=== PATIENT | female | born 2005 | race African-American/Black ===

== ENCOUNTER 2023-08-26 23:49 | Emergency (ER) | payer BC ==
--- OUTSIDE RECORDS SUMMARY | 2023-08-26 23:52 | XMS REPORT | Continuity of Care Document ---
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 Role Phone Lab, Adc Fam Pob I Attending Clinician Unavailab iGl Meneses PA-C Attending Clinician [phone] Lab, Pcp Lois Attending Clinician Unavailable Geovanni Malhotra Attending Clinician [phone] GEOVANNI FITZGERALD Attending Clinician Unavailable Payers Payer Name Policy Type Policy Number Effective Date Expirati on Date Source [facility] [id number] 2018 00:00:00 Allergies, Adverse Reactions, Alerts Allergy Name Allergy Type Status Severity Reaction(s) Onset Date Inactive Date Treating Clinician Comments Source NO KNOWN ALLERGIE S Drug Class Active [facility] Social History Social Habit Start Date Stop Date Quantity Comments Source Sex Assigned At [facility] Exposure to SARS-CoV-2 (event) Yes [facility] Smoking Status Start Date Stop Date Source Unknown if ever smoked Unive [facility] Encounters Start Date/Time End Date/Time Encounter Type Admission Type Attending Clinicians Care Facility Care Department Encounter ID Source 2020-02-29 16:20:00 2020-02-29 16:20:00 Outpatient R [facility] [id number] [facility] 2020-02-29 16:08:27 2020-02-29 16:19:02 Laboratory Only Lab, Adc Fam Pob I [place] [facility] [address] [id number] [facility] 2019-11-24 00:00:00 2019-11-24 00:00:00 Letter (Out) Lab, Pcp Lois [facility] [address] [id number] [facility] 2019-11-19 09:40:36 2019-11-19 10:00:36 Laboratory Only Lab, Adc Fam Pob Geovanni Luevano [facility] [address] [id number] [facility] 2019-11-19 09:40:00 2019-11-19 09:40:00 Outpatient GEOVANNI CRUZ [facility] [id number] [facility]
[2023-08-27] MEDS ORDERED: KETOROLAC 30 MG/ML INJ ONE (00:36)
[2023-08-27 01:15] LABS: SARS-CoV-2 Antigen CONTROL BLUE LINE VIS/BG OK; SARS-CoV-2 Antigen Rapid Res Negative (Negative)
[2023-08-27 03:59] LABS: Absolute Basophils 0.1 K/uL (0-0.5); Absolute Eosinophils 0.2 K/uL (0-0.5); Absolute Lymphocytes (CBC) 2.1 K/uL (0.7-4.9); Absolute Monocytes 0.7 K/uL (0.1-1.3); Absolute Neutrophil 5.7 K/uL (1.8-8.0); Basophils % 0.7 % (0-1.3); Hematocrit 34.9 % (36.0-45.0); Hemoglobin 11.9 g/dL (12.0-15.0); Lymphocytes % 24.1 % (15.3-44.8); MCHC 34.2 g/dL (32.0-36.0); MCV 87.7 fL (80-100); Monocytes % 8.3 % (3.3-12.3); Neutrophils % 64.9 % (41.7-73.7); Platelets 289 thou/uL (152-406); RBC Red Blood Cell Count 3.98 M/uL (3.86-4.86); Red Cell Distribution Width 14.3 % (12.1-15.2)
[2023-08-27 04:03] LABS: PT Prothrombin Time 11.9 SECONDS (9.5-12.5); Protime INR 1.08
[2023-08-27 04:06] LABS: Specific Gravity > 1.030 (1.005-1.030)
[2023-08-27 04:22] LABS: ALT/SGPT 19 U/L (13-56); AST/SGOT 12 U/L (15-37); Albumin 3.8 g/dL (3.4-5.0); Albumin/Globulin Ratio 1.1 (1.1-1.8); Alkaline Phosphatase 52 U/L (45-117); Anion Gap 7.4 mEq/L (5.0-15.0); BUN Blood Urea Nitrogen 11 mg/dL (7-18); Bicarbonate 25 mEq/L (21-32); Bilirubin Total 0.4 mg/dL (0.2-1.0); Globulin 3.6 g/dL (2.3-3.5); Glomerular Filtration Rate 91 ml/min (=/>90); Glucose Level 92 mg/dL (74-106); Magnesium 2.2 mg/dL (1.6-2.4); Potassium 3.4 mEq/L (3.5-5.1); Protein, Total 7.4 g/dL (6.4-8.2); Sodium Level 139 mEq/L (136-145); Troponin High Sensitivity 3.4 pg/mL (<58.9)
[2023-08-27 04:24] LABS: Barbiturates NEGATIVE (NEGATIVE); Benzodiazepines NEGATIVE (NEGATIVE); Cocaine NEGATIVE (NEGATIVE); METHAMPHETAM NEGATIVE (NEGATIVE); Methadone NEGATIVE (NEGATIVE); Opiates NEGATIVE (NEGATIVE); Phencyclidine NEGATIVE (NEGATIVE); THC Cannibis POSITIVE (NEGATIVE)
[2023-08-27 04:24] LABS: Bilirubin Direct < 0.1 mg/dL (0-0.2); Bilirubin Indirect, Calculated ND mg/dL (0.2-0.8)
--- NOTE | 2023-08-27 04:47 | ER ---
[facility] Name: Daniela Vazquez Age: 18 yrs Sex: Female : 2005 Arrival Date: 08/26/2023 Time: 23:49 Bed 16 Private MD: Diagnosis: Chest pain, unspecified;non cardiac chest pain Presentation: 08/26 00:10 Chief complaint: Patient states: CP ON AND OFF FOR A FEW WEEKS. Coronavirus screen: [facility] this time, the client does not indicate any symptoms associated with coronavirus-19. Ebola Screen: No symptoms or risks identified at this time. Initial Sepsis Screen: Does the patient meet any 2 criteria? No. Patient's initial sepsis screen is negative. Does the patient have a suspected source of infection? No. Patient's initial sepsis screen is negative. Risk Assessment: Do you want to hurt yourself or someone else? Patient reports no desire to harm self or others. 00:10 Method Of Arrival: [facility] 00:10 Acuity: DONI 3 j7 Triage Assessment: 00:17 General: Appears in no apparent distress. comfortable, Behavior is calm, cooperative, jj7 appropriate for age. Pain: Complains of pain in chest Pain radiates to back. Cardiovascular: Reports chest pain. 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 - Infectious Disease History:: Denies. - Social history:: Smoking status: Patient denies any tobacco usage or history of. Patient uses street drugs, marijuana. Screenin:10 [facility] ED Fall Risk Assessment (Adult) History of falling in the last 3 months, j7 including since admission No falls in past 3 months (0 pts) Confusion or Disorientation No (0 pts) Intoxicated or Sedated No (0 pts) Impaired Gait No (0 pts) Mobility Assist Device Used No (0 pt) Altered Elimination No (0 pt) Score/Fall Risk Level 0 - 2 = Low Risk Oriented to surroundings, Maintained a safe environment, Educated pt \T\ family on fall prevention, incl call for assistance when getting out of bed. Abuse screen: Denies threats or abuse. Nutritional screening: No deficits noted. Tuberculosis screening: No symptoms or risk factors identified. Assessment: 00:10 Pain: Pain began ON AND OFF FOR A FEW WEEKS. jj7 Vital Signs: 00:10 BP 129 / 82; Pulse 91; Resp 18; Temp 97.6; Pulse Ox 100% ; Weight 58.97 kg; Height 5 j7 ft. 3 in. ; Pain 5/10; 01:01 BP 124 / 77; Pulse 81; Resp 17; Pulse Ox 97% ; jj7 02:06 BP 130 / 87; Pulse 80; Resp 17; Pulse Ox 100% ; jj7 03:00 BP 124 / 85; Pulse 76; Resp 19; Pulse Ox 99% ; Pain 0/10; jj7 04:00 BP 101 / 80; Pulse 89; Resp 19; Pulse Ox 98% ; jj7 04:55 BP 126 / 76; Pulse 82; Resp 19; Temp 98.7; Pulse Ox 100% ; Pain 0/10; jj7 00:10 Body Mass Index 23.03 (58.97 kg, 160.02 cm) jj7 00:10 Pain Scale: Adult jj7 03:00 Pain Scale: Adult jj7 04:55 Pain Scale: Adult jj7 ED Course: 08/25 23:52 Patient arrived in ED. mr 23:56 LesterAlma PA-C is PHCP. sb4 23:56 yR Lawrence MD is Attending Physician. 4 08/26 00:10 Arm band placed on right wrist. Patient placed in an exam room, on a stretcher. jj7 00:10 Patient has correct armband on for positive identification. Bed in low position. Call jj7 light in reach. Provided Education on: USE OF CALL CHAN. Client placed on continuous cardiac and pulse oximetry monitoring. NIBP monitoring applied. 00:10 No provider procedures requiring assistance completed. jj7 00:17 Triage completed. jj7 00:46 Flu Sent. jj7 00:46 SARS RAPID Sent. jj7 01:31 Chest Pa And Lat (2 Views) XRAY In Process Unspecified. EDMS 02:05 Davonte Sousa RN is Primary Nurse. jj7 03:27 Basic Metabolic Panel Sent. vk 03:27 CBC with Diff Sent. vk 03:27 LFT's Sent. vk 03:27 Magnesium Sent. vk 03:27 PT-INR Sent. vk 03:27 Troponin HS Sent. vk 03:27 Test, Urine Sent. vk 03:27 Urine Drug Screen Sent. vk 03:28 Initial lab(s) drawn, by me, sent to lab. Urine collected: clean catch specimen, blood vk tinged. 03:42 EKG done, by ED staff. vk 04:55 Patient did not have IV access during this emergency room visit. jj7 Administered Medications: 00:46 Drug: Ketorolac IM 30 mg IM once Route: IM; Site: left deltoid; jj7 02:15 Follow up: Response: Marked relief of symptoms; Pain is decreased jj7 Medication: 00:10 VIS not applicable for this client. jj7 Outcome: 04:47 Discharge ordered by . bill 04:55 Discharged to home ambulatory, with significant other, jj7 04:55 Condition: improved 04:55 Discharge instructions given to patient, Instructed on discharge instructions, follow up and referral plans. Demonstrated understanding of instructions, follow-up care, 04:55 Patient left the ED. jj7 Signatures: Dispatcher [employer] EDCA Gladys Woody, Vick Hickman Davonte Sousa RN RN jj7 Alma Batista, PA-C PA-C jose a4 Ry Lawrence MD MD sp4 Radha Ramirez Corrections: (The following items were deleted from the chart) 05:01 05:00 Patient left the ED. jj7 jj7
--- NOTE | 2023-08-27 04:48 | EDPHYS ---
Physician Documentation [facility] Name: Daniela Vazquez Age: 18 yrs Sex: Female : 2005 Arrival Date: 08/26/2023 Time: 23:49 Bed 16 Private MD: ED Physician Ry Lawrence HPI: 08/26 00:14 This 18 yrs old Black Female presents to ER via Unassigned with complaints of Chest sb4 Pain. 00:14 intermittent chest pain x 2 weeks. worse with deep breaths. denies any URI symptoms. no sb4 shortness of breath, nausea, vomiting, fever, chills. denies any chronic medical issues. rates pain 5/10 left anterior chest wall. 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 - Infectious Disease History:: Denies. - Social history:: Smoking status: Patient denies any tobacco usage or history of. Patient uses street drugs, marijuana. ROS: 00:14 Constitutional: Negative for fever, chills, and weight loss, sb4 00:14 Cardiovascular: Positive for chest pain, 00:14 All other systems are negative, Exam: 00:14 Constitutional: This is a well developed, well nourished patient who is awake, alert, sb4 and in no acute distress. Head/Face: Normocephalic, atraumatic. Eyes: Extra-ocular motions intact. Periorbital areas with no swelling, redness, or edema. ENT: Mucous membranes moist. Cardiovascular: Regular rate and rhythm with a normal S1 and S2. Respiratory: Lungs have equal breath sounds bilaterally, clear to auscultation and percussion. No rales, rhonchi or wheezes noted. No increased work of breathing, no retractions or nasal flaring. Abdomen/GI: Soft, non-tender, no distension. Skin: Warm, dry with normal turgor. Normal color with no rashes, no lesions, and no evidence of cellulitis. MS/ Extremity: Pulses equal, no cyanosis. Neurovascular intact. Full, normal range of motion. Neuro: Awake and alert, GCS 15, oriented to person, place, time, and situation. Motor strength 5/5 in all extremities. Sensory grossly intact. 00:14 Chest/axilla: Inspection: normal, Palpation: tenderness, that is mild, of the anterior sb4 aspect of left upper chest, that partially reproduces the patient's complaints, 07:38 ECG was reviewed by the Attending Physician. EKG time 0 339 normal sinus rhythm at the sp4 rate of 63 Vital Signs: 00:10 BP 129 / 82; Pulse 91; Resp 18; Temp 97.6; Pulse Ox 100% ; Weight 58.97 kg; Height 5 jj7 ft. 3 in. ; Pain 5/10; 01:01 BP 124 / 77; Pulse 81; Resp 17; Pulse Ox 97% ; jj7 02:06 BP 130 / 87; Pulse 80; Resp 17; Pulse Ox 100% ; jj7 03:00 BP 124 / 85; Pulse 76; Resp 19; Pulse Ox 99% ; Pain 0/10; jj7 04:00 BP 101 / 80; Pulse 89; Resp 19; Pulse Ox 98% ; jj7 04:55 BP 126 / 76; Pulse 82; Resp 19; Temp 98.7; Pulse Ox 100% ; Pain 0/10; jj7 00:10 Body Mass Index 23.03 (58.97 kg, 160.02 cm) j7 00:10 Pain Scale: Adult jj7 03:00 Pain Scale: Adult jj7 04:55 Pain Scale: Adult jj7 MDM: 08/25 23:58 Patient medically screened. 4 08/26 04:40 ED course: EXAM DESCRIPTION: Chest Pa And Lat (2 Views) CLINICAL HISTORY: 18 years sp4 Female, CHEST PAIN COMPARISON: None. FINDINGS: No consolidation. No pneumothorax. No significant pleural effusion. Cardiomediastinal silhouette is unremarkable. Osseous structures are unremarkable. IMPRESSION: No acute findings. . 04:45 Differential diagnosis: acute pericarditis, anxiety, chest wall pain, costochondritis, sp4 esophagitis. HEART Score: History: Slightly Suspicious (0), ECG: Normal (0), Age: < or = 45 years (0), Risk Factors: No Risk Factors Known (0), Troponin: < or = 1 x Normal Limit (0), Total Score = 0. Data reviewed: vital signs, nurses notes, lab test result(s), EKG, radiologic studies, plain films. 08/26 00:12 Order name: SARS RAPID; Complete Time: 02:40 sb4 08/26 00:12 Order name: Flu; Complete Time: 02:40 sb4 08/26 02:48 Order name: Basic Metabolic Panel; Complete Time: 04:39 sp4 08/26 02:48 Order name: CBC with Diff; Complete Time: 04:14 sp4 08/26 02:48 Order name: LFT's; Complete Time: 04:39 sp4 08/26 02:48 Order name: Magnesium; Complete Time: 04:39 sp4 08/26 02:48 Order name: PT-INR; Complete Time: 04:14 sp4 08/26 02:48 Order name: Troponin HS; Complete Time: 04:39 sp4 08/26 02:49 Order name: Test, Urine; Complete Time: 04:14 4 08/26 02:49 Order name: Urine Drug Screen; Complete Time: 04:39 sp4 08/26 00:12 Order name: Chest Pa And Lat (2 Views) XRAY; Complete Time: 13:20 sb4 08/26 01:06 Order name: EKG; Complete Time: 01:06 4 08/26 02:48 Order name: EKG - Nurse/Tech; Complete Time: 03:42 sp4 EC:38 Rate is 63 beats/min. Rhythm is regular, Normal Sinus Rhythm. QRS [place] is Normal. RI sp4 interval is normal. QRS interval is normal. QT interval is normal. No Q waves. T waves are Normal. No ST changes noted. Clinical impression: Normal ECG. Interpreted by me. Reviewed by me. Administered Medications: 00:46 Drug: Ketorolac IM 30 mg IM once Route: IM; Site: left deltoid; jj7 02:15 Follow up: Response: Marked relief of symptoms; Pain is decreased jj7 Disposition: 04:46 Co-signature as Attending Physician, Ry Lawrence MD I agree with the assessment sp4 and plan of care. I reviewed the patient's care provided by Advanced Practice Provider \T\ agree w/ the diagnosis \T\ care plan. I personally saw the pt \T\ performed a substantive portion of the visit, incldng all aspects of the (History/Exam/Medical Decision Making). 13:20 Chart complete. sb4 Disposition Summary: 08/27/23 04:47 Discharge Ordered Notes: Location: Home sp4 Problem: new sp4 Symptoms: have improved sp4 Condition: Stable sp4 Diagnosis - Chest pain, unspecified sp4 - non cardiac chest pain sp4 Followup: sp4 - With: Private Physician - When: 7 - 10 days - Reason: Recheck today's complaints Discharge Instructions: - Discharge Summary Sheet sp4 - Nonspecific Chest Pain, Adult, [id number] sp4 Forms: - Work release form sp4 Signatures: Dispatcher [employer] EDDavonte Lopez RN RN jjAlma Teran PA-C PA-C sb4 Ry Lawrence MD MD sp4 Corrections: (The following items were deleted from the chart) 00:13 00:13 Chest Pa And Lat (2 Views)+RAD.RAD.BRZ ordered. EDMS EDMS 00:13 00:13 SARS-COV-2 Antigen Rapid+I.LAB.BRZ ordered. EDMS EDMS 00:13 00:13 Influenza Screen (A \T\ B)+BA.LAB.BRZ ordered. EDMS EDMS 02:49 02:49 BASIC METABOLIC PANEL+C.LAB.BRZ ordered. EDMS EDMS 02:49 02:49 CBC+H.LAB.BRZ ordered. EDMS EDMS 02:49 02:49 HEPATIC FUNCTION+C.LAB.BRZ ordered. EDMS EDMS 02:49 02:49 MAGNESIUM+C.LAB.BRZ ordered. EDMS EDMS 02:49 02:49 PROTIME (+INR)+COAG.LAB.BRZ ordered. EDMS EDMS 02:49 02:49 Troponin High Sensitivity+C.LAB.BRZ ordered. EDMS EDMS 02:49 02:49 Test, Urine+UC.LAB.BRZ ordered. EDMS EDMS
[2023-08-27 05:07] VITALS: O2SAT 100
[2023-08-27 05:32] VITALS: BP 126/76; TEMP 98.7
--- NOTE | 2023-08-27 11:52 | RAD REPORT ---
EXAM DESCRIPTION: Chest Pa And Lat (2 Views) CLINICAL HISTORY: 18 years Female, CHEST PAIN COMPARISON: None. FINDINGS: No consolidation. No pneumothorax. No significant pleural effusion. Cardiomediastinal silhouette is unremarkable. Osseous structures are unremarkable. IMPRESSION: No acute findings. Electronically signed by: Reid Weaver MD 08/27/2023 03:08 AM CDT Due to temporary technical issues with the PACS/Fluency reporting system, reports are being signed by the in house radiologist without review as a courtesy to ensure prompt reporting. The interpreting r adiologist is fully responsible for the content of the report.
--- NOTE | 2023-08-27 13:27 | EKG ---
Test Date: 2023-08-27 Test Time: 03:39:50 Machine Or Machinery Mechanic: SHRUTHI MEASUREMENT RESULTS: Intervals: Rate: 63 IA: 154 QRSD: 70 QT: 402 QTc: 411 [place]: P: 44 IA: 154 QRS: 76 T: 67 INTERPRETIVE STATEMENTS: Normal sinus rhythm Normal ECG No previous ECG available for comparison Electronically Signed On 08-27-23 13:26:46 CDT by Royal Calixto
== END 2023-08-27 05:00 | disposition home or self-care (01) ==
LOC: ER 23:49
DX: R07.89 Other chest pain (principal); Z11.52 Encounter for screening for COVID-19
CPT/HCPCS: 36415; 71046; 80048; 80076; 80307; 81025; 83735; 84484; 85025; 85610; 87804; 87811; 93005; 96372; 99284

== ENCOUNTER 2024-07-06 20:29 | Emergency (ER) | payer BC ==
[2024-07-06 21:56] LABS: Absolute Basophils 0.1 K/uL (0-0.5); Absolute Eosinophils 0.1 K/uL (0-0.5); Absolute Monocytes 1.1 K/uL (0.1-1.3); Basophils % 0.6 % (0-1.3); Eosinophils % 0.5 % (0-4.4); Hematocrit 36.7 % (36.0-45.0); Hemoglobin 12.5 g/dL (12.0-15.0); Lymphocytes % 22.7 % (15.3-44.8); MCH 29.3 pg (27.0-35.0); MPV 9.5 fL (7.6-11.3); Monocytes % 8.3 % (3.3-12.3); Neutrophils % 67.9 % (41.7-73.7); PT Prothrombin Time 11.7 SECONDS (10-13.0); Platelets 316 thou/uL (152-406); Protime INR 1.03; RBC Red Blood Cell Count 4.26 M/uL (3.86-4.86); Red Cell Distribution Width 14.3 % (12.1-15.2)
[2024-07-06 22:11] LABS: Barbiturates NEGATIVE (NEGATIVE); Benzodiazepines NEGATIVE (NEGATIVE); Cocaine NEGATIVE (NEGATIVE); METHAMPHETAM NEGATIVE (NEGATIVE); Methadone NEGATIVE (NEGATIVE); Opiates NEGATIVE (NEGATIVE); Phencyclidine NEGATIVE (NEGATIVE); THC Cannibis POSITIVE (NEGATIVE)
[2024-07-06 22:14] LABS: ALT/SGPT 19 U/L (13-56); AST/SGOT 13 U/L (15-37); Albumin 3.9 g/dL (3.4-5.0); Alkaline Phosphatase 55 U/L (45-117); Anion Gap 8.2 mEq/L (5.0-15.0); BUN Blood Urea Nitrogen 22 mg/dL (7-18); Bicarbonate 26 mEq/L (21-32); Bilirubin Total 0.2 mg/dL (0.2-1.0); Globulin 3.8 g/dL (2.3-3.5); Glomerular Filtration Rate 87 ml/min (=/>90); Glucose Level 95 mg/dL (74-106); Magnesium 1.9 mg/dL (1.6-2.4); NT PRO-BNP 30 pg/mL (<125); Potassium 3.2 mEq/L (3.5-5.1); Protein, Total 7.7 g/dL (6.4-8.2); Sodium Level 138 mEq/L (136-145); Thyroid Stimulating Hormone 0.422 uIU/mL (0.358-3.740)
[2024-07-06 22:15] LABS: Bilirubin Direct < 0.2 mg/dL (0-0.2); Troponin High Sensitivity < 3.0 pg/mL (<58.9)
--- NOTE | 2024-07-06 22:18 | RAD REPORT ---
EXAMINATION: ONE VIEW CHEST XR CLINICAL INDICATION: Female, 19 years old.,CHEST PAIN TECHNIQUE: Frontal chest projection is submitted. Examination is limited by patient positioning and t echnique. COMPARISON: 08/27/2023 FINDINGS: The lungs are well inflated and clear. No pneumothorax or sizable effusion. The heart is normal in s ize. Mediastinal contours are unremarkable. IMPRESSION: No acute intrathoracic abnormalities.
[2024-07-06] MEDS ORDERED: NA CHLORIDE 0.9% 1,000 ML ONE (22:19)
--- NOTE | 2024-07-06 22:56 | RAD REPORT ---
EXAM: CT Chest For Pe Angio TECHNIQUE: CT angiogram of the chest was performed following intravenous contrast administration, inc luding sagittal and coronal as well as maximum intensity projection reformats. One or more of the following dose reduction techniques were used: Automated exposure control, adjustment of the mA and k V according to patient size, and iterative reconstruction. Unless otherwise specified, incidental findings do not require dedicated imaging follow-up. INDICATION: [facility] MAIN CHEST PAIN Bed Name: 18 N COMPARISON: Chest radiograph of the same day. FINDINGS: LINES/TUBES: None. PULMONARY ARTERIES: Main pulmonary arteries are normal in caliber. No filling defects within the pul monary arteries to suggest pulmonary embolus. LUNGS AND AIRWAYS: The lungs and central airways are normal without focal abnormality. PLEURA: No effusion or pneumothorax. HEART AND MEDIASTINUM: The visualized thyroid gland is normal. No mediastinal, hilar, or axillary lym phadenopathy. Heart is unremarkable. No pericardial effusion. SOFT TISSUES AND BONES: No acute osseous abnormality. No significant soft tissue finding. UPPER ABDOMEN: Unremarkable. IMPRESSION: No evidence of acute central pulmonary emboli. No suspicious intrathoracic findings..
--- NOTE | 2024-07-07 01:16 | EDPHYS ---
Physician Documentation [facility] Name: Daniela Vazquez Age: 19 yrs Sex: Female : 2005 Arrival Date: 07/06/2024 Time: 20:29 Bed 18 Private MD: ED Physician Ry Lawrence HPI: 07/06 20:35 This 19 yrs old Black Female presents to ER via Unassigned with complaints of Chest sp4 Pain. 07/07 06:15 Patient presents with recurrent chest pains. Patient has evaluation scheduled with Dr. bill Noe at [place] for recurrent chest pains.. Historical: - Allergies: 07/06 20:42 No Known Allergies; al5 - PMHx: 20:42 Asthma; colitis; gastritis; bulging discs; al5 - PSHx: 20:42 None; al5 - Immunization history:: Adult Immunizations up to date. - Infectious Disease History:: Denies. - Social history:: Smoking status: Patient denies any tobacco usage or history of. - Family history:: not pertinent. ROS: 07/07 06:15 Constitutional: Negative for fever, chills, and weight loss, positive chest pains sp4 All other systems are negative, Exam: 06:15 Constitutional: This is a well developed, well nourished patient who is awake, alert, sp4 and in no acute distress. Head/Face: Normocephalic, atraumatic. Eyes: Pupils equal round and reactive to light, extra-ocular motions intact. Lids and lashes normal. Conjunctiva and sclera are not injected. Cornea within normal limits. Periorbital areas with no swelling, redness, or edema. ENT: Nares patent. No nasal discharge, no septal abnormalities noted. Tympanic membranes are normal and external auditory canals are clear. Oropharynx with no redness, swelling, or masses, exudates, or evidence of obstruction, uvula midline. Mucous membranes moist. Neck: Trachea midline, no thyromegaly or masses palpated, and no cervical lymphadenopathy. Supple, full range of motion without nuchal rigidity, or vertebral point tenderness. Chest/axilla: Normal chest wall appearance and motion. Nontender with no deformity. No lesions are appreciated. Cardiovascular: Regular rate and rhythm with a normal S1 and S2. No gallops, murmurs, or rubs. Normal PMI, no JVD. No pulse deficits. Respiratory: Lungs have equal breath sounds bilaterally, clear to auscultation and percussion. No rales, rhonchi or wheezes noted. No increased work of breathing, no retractions or nasal flaring. Abdomen/GI: Soft, with normal bowel sounds. No distension or tympany. No guarding or rebound. No evidence of tenderness throughout. Back: No spinal tenderness. No costovertebral tenderness. Skin: Warm, dry with normal turgor. Normal color with no rashes, no lesions, and no evidence of cellulitis. MS/ Extremity: Pulses equal, no cyanosis. Neurovascular intact. Full, normal range of motion. Neuro: Awake and alert, GCS 15, oriented to person, place, time, and situation. Cranial nerves II-XII grossly intact. Motor strength 5/5 in all extremities. Sensory grossly intact. Psych: Awake, alert, with orientation to person, place and time. Behavior, mood, and affect are within normal limits 06:15 ECG was reviewed by the Attending Physician. EKG 4 normal EKG Vital Signs: 07/06 20:46 BP 125 / 95; Pulse 73; Resp 16; Temp 97.8; Pulse Ox 100% on R/A; Weight 61.23 kg; al5 Height 5 ft. 4 in. ; Pain 5/10; 21:25 BP 126 / 78; Pulse 81; Resp 18; Temp 98.4; Pulse Ox 98% on R/A; ay 22:21 BP 118 / 81; Pulse 82; Resp 16; Pulse Ox 100% on R/A; ay 23:00 BP 110 / 63; Pulse 69; Resp 17; Pulse Ox 100% on R/A; ay 07/07 00:00 BP 122 / 91; Pulse 66; Resp 19; Pulse Ox 100% on R/A; ay 01:30 BP 116 / 76; Pulse 68; Resp 17; Pulse Ox 100% on R/A; ay 07/06 20:46 Body Mass Index 23.17 (61.23 kg, 162.56 cm) [facility] 07/06 20:46 Pain Scale: Adult al5 [place] Coma Score: 07/06 21:21 Eye Response: spontaneous(4). Motor Response: obeys commands(6). Verbal Response: ay oriented(5). Total: 15. 07/07 06:15 Eye Response: spontaneous(4). Motor Response: obeys commands(6). Verbal Response: sp4 oriented(5). Total: 15. MDM: 07/06 20:36 Medical Screening Exam initiated sp4 20:44 Differential diagnosis: acute myocardial infarction, acute pericarditis, anxiety, sp4 coronary artery disease chest wall pain, congestive heart failure esophagitis, gastritis. HEART Score: History: Slightly Suspicious (0), ECG: Normal (0), Age: < or = 45 years (0), Risk Factors: No Risk Factors Known (0), Troponin: < or = 1 x Normal Limit (0), Total Score = 0. Data reviewed: vital signs, nurses notes, old medical records, lab test result(s), EKG, radiologic studies, CT scan, plain films. Consideration of Admission/Observation Escalation of care including admission/observation considered. ED course: EXAMINATION: ONE VIEW CHEST XR CLINICAL INDICATION: Female, 19 years old.,CHEST PAIN TECHNIQUE: Frontal chest projection is submitted. Examination is limited by patient positioning and technique. COMPARISON: 08/27/2023 FINDINGS: The lungs are well inflated and clear. No pneumothorax or sizable effusion. The heart is normal in size. Mediastinal contours are unremarkable. IMPRESSION: No acute intrathoracic abnormalities. . ED course: INDICATION: [facility] MAIN CHEST PAIN Bed Name: 18 N COMPARISON: Chest radiograph of the same day. FINDINGS: LINES/TUBES: None. PULMONARYARTERIES: Main pulmonary arteries are normal in caliber. No filling defects within the pulmonary arteries to suggest pulmonary embolus. LUNGS AND AIRWAYS: The lungs and central airways are normal without focal abnormality. PLEURA: No effusion or pneumothorax. HEARTAND MEDIASTINUM: The visualized thyroid gland is normal. No mediastinal, hilar, or axillary lymphadenopathy. Heart is unremarkable. No pericardial effusion. SOFT TISSUES AND BONES: No acute osseous abnormality. No significant soft tissue finding. UPPER ABDOMEN: Unremarkable. IMPRESSION: No evidence of acute central pulmonary emboli. No suspicious intrathoracic findings... ED course: Patient has normal workup today. Patient stable for discharge home. Advised follow-up with cardiology as scheduled. 07/06 21:01 Order name: Basic Metabolic Panel; Complete Time: 01:08 sp4 07/06 21:01 Order name: CBC with Diff; Complete Time: 01:08 sp4 07/06 21:01 Order name: LFT's; Complete Time: 01:08 sp4 07/06 21:01 Order name: Magnesium; Complete Time: 01:08 sp4 07/06 21:01 Order name: NT PRO-BNP; Complete Time: 01:08 sp4 07/06 21:01 Order name: PT-INR; Complete Time: 01:08 sp4 07/06 21:01 Order name: Troponin HS; Complete Time: 01:08 sp4 07/06 21:01 Order name: TSH; Complete Time: 01:08 sp4 07/06 21:01 Order name: Test, Serum; Complete Time: 01:08 sp4 07/06 21:02 Order name: Urine Drug Screen; Complete Time: 01:08 sp4 07/06 22:03 Order name: T4 Free; Complete Time: 01:08 EDMS 03 21:01 Order name: XRAY Chest (1 view); Complete Time: 01:08 sp4 07/06 21:27 Order name: CT Chest For PE Angio; Complete Time: 01:08 sp4 07/06 21:01 Order name: EKG; Complete Time: 21: sp4 07/06 21:01 Order name: Cardiac monitoring; Complete Time: 22:23 sp4 07/06 21:01 Order name: EKG - Nurse/Tech; Complete Time: 21: sp4 07/06 21:01 Order name: IV Saline Lock; Complete Time: 22:23 sp4 07/06 21:01 Order name: Labs collected and sent; Complete Time: 22:23 sp4 07/06 21:01 Order name: O2 Per Protocol; Complete Time: 22:23 sp4 07/06 21:01 Order name: O2 Sat Monitoring; Complete Time: 22:23 sp4 EC:44 Rate is 69 beats/min. Rhythm is regular, Normal Sinus Rhythm. QRS [place] is Normal. [place] sp4 interval is normal. QRS interval is normal. QT interval is normal. No Q waves. T waves are Normal. No ST changes noted. Clinical impression: Normal ECG. Interpreted by me. Reviewed by me. Administered Medications: 22:17 Drug: NS 0.9% IV 1000 ml IV at 1000 ml once; to be given as a bolus over 60 minutes ay Route: IV; Rate: 1000 ml; Site: right antecubital; 07/07 01:36 Follow up: IV Status: Completed infusion ay Disposition Summary: 07/07/24 01:16 Discharge Ordered Problem: new sp4 Symptoms: have improved sp4 Condition: Stable sp4 Diagnosis - Non Cardiac Chest pain sp4 Followup: sp4 - With: Marlon Noe MD - When: 7 - 10 days - Reason: Recheck today's complaints Discharge Instructions: - Discharge Summary Sheet sp4 - Nonspecific Chest Pain, Adult, [id number] sp4 Forms: - Patient Portal Instructions sp4 Signatures: Dispatcher [employer] Ry Garcia MD MD sp4 Evelin Read RN RN al5 Kamilah Knutson RN RN ay Corrections: (The following items were deleted from the chart) 07/06 21:02 21:02 URINE DRUG SCREEN+UC.LAB.BRZ ordered. EDMS EDMS 22:02 21:28 T4 FREE+C.LAB.BRZ ordered. EDMS EDMS
--- NOTE | 2024-07-07 01:16 | ER ---
Nurse's Notes [facility] Name: aDniela Vazquez Age: 19 yrs Sex: Female : 2005 Arrival Date: 07/06/2024 Time: 20:29 Bed 18 Private MD: Diagnosis: Non Cardiac Chest pain Presentation: 07/06 20:40 Chief complaint: Patient states: c/o cp for past 15-20 minutes. states that this has al5 been an ongoing issue and is supposed to see multiple games dealer at the end of the month. Coronavirus screen: At this time, the client does not indicate any symptoms associated with coronavirus-19. Ebola Screen: No symptoms or risks identified at this time. Initial Sepsis Screen: Does the patient meet any 2 criteria? Does the patient have a suspected source of infection? No. Patient's initial sepsis screen is negative. Risk Assessment: Do you want to hurt yourself or someone else? Patient reports no desire to harm self or others. Onset of symptoms was July 06, 2024. 20:40 Method Of Arrival: Ambulatory al5 20:40 Acuity: DONI 2 al5 Triage Assessment: 20:43 General: Appears in no apparent distress. comfortable, slender, well groomed, well al5 developed, Behavior is calm, cooperative. Pain: Complains of pain in chest Pain currently is 5 out of 10 on a pain scale. EENT: No signs and/or symptoms were reported regarding the EENT system. Neuro: Level of Consciousness is awake, alert, obeys commands, Oriented to person, place, time, situation. Cardiovascular: Capillary refill < 3 seconds Patient's skin is warm and dry. Cardiovascular: Reports chest pain, Rhythm is sinus rhythm. Respiratory: Airway is patent Respiratory effort is even, unlabored, Respiratory pattern is regular, symmetrical. GI: No signs and/or symptoms were reported involving the gastrointestinal system. : No signs and/or symptoms were reported regarding the genitourinary system. Derm: Skin is intact, is healthy with good turgor, Skin is pink, warm \T\ dry. normal. Musculoskeletal: No signs and/or symptoms reported regarding the musculoskeletal system. Historical: - Allergies: 20:42 No Known Allergies; al5 - PMHx: 20:42 Asthma; colitis; gastritis; bulging discs; al5 - PSHx: 20:42 None; al5 - Immunization history:: Adult Immunizations up to date. - Infectious Disease History:: Denies. - Social history:: Smoking status: Patient denies any tobacco usage or history of. - Family history:: not pertinent. Screenin:21 [facility] ED Fall Risk Assessment (Adult) History of falling in the last 3 months, ay including since admission No falls in past 3 months (0 pts) Confusion or Disorientation No (0 pts) Intoxicated or Sedated No (0 pts) Impaired Gait No (0 pts) Mobility Assist Device Used No (0 pt) Altered Elimination No (0 pt) Score/Fall Risk Level 0 - 2 = Low Risk Oriented to surroundings, Maintained a safe environment, Educated pt \T\ family on fall prevention, incl call for assistance when getting out of bed. Abuse screen: Denies threats or abuse. Nutritional screening: No deficits noted. Tuberculosis screening: No symptoms or risk factors identified. Assessment: 21:21 General: Appears in no apparent distress. Behavior is calm, cooperative. Pain: ay Complains of pain in chest Pain does not radiate. Pain currently is 5 out of 10 on a pain scale. Pain began 1 hour ago. Neuro: Level of Consciousness is awake, alert, obeys commands, Oriented to person, place, time, Speech is normal. Cardiovascular: Reports Denies nausea, shortness of breath, vomiting, Capillary refill < 3 seconds Chest pain. Respiratory: Airway is patent Respiratory effort is even, unlabored, Respiratory pattern is regular, symmetrical. GI: No signs and/or symptoms were reported involving the gastrointestinal system. : No signs and/or symptoms were reported regarding the genitourinary system. EENT: No signs and/or symptoms were reported regarding the EENT system. 07/07 00:37 Reassessment: Patient appears in no apparent distress at this time. Patient is alert, ay oriented x 3, equal unlabored respirations, skin warm/dry/pink. Patient denies pain at this time. Vital Signs: 07/06 20:46 BP 125 / 95; Pulse 73; Resp 16; Temp 97.8; Pulse Ox 100% on R/A; Weight 61.23 kg; al5 Height 5 ft. 4 in. ; Pain 5/10; 21:25 BP 126 / 78; Pulse 81; Resp 18; Temp 98.4; Pulse Ox 98% on R/A; ay 22:21 BP 118 / 81; Pulse 82; Resp 16; Pulse Ox 100% on R/A; ay 23:00 BP 110 / 63; Pulse 69; Resp 17; Pulse Ox 100% on R/A; ay 07/07 00:00 BP 122 / 91; Pulse 66; Resp 19; Pulse Ox 100% on R/A; ay 01:30 BP 116 / 76; Pulse 68; Resp 17; Pulse Ox 100% on R/A; ay 07/06 20:46 Body Mass Index 23.17 (61.23 kg, 162.56 cm) al5 07/06 20:46 Pain Scale: Adult al5 [place] Coma Score: 07/06 21:21 Eye Response: spontaneous(4). Motor Response: obeys commands(6). Verbal Response: ay oriented(5). Total: 15. 07/07 06:15 Eye Response: spontaneous(4). Motor Response: obeys commands(6). Verbal Response: sp4 oriented(5). Total: 15. ED Course: 07/06 20:32 Patient arrived in ED. [id number] 20:35 Ry Lawrence MD is Attending Physician. sp4 20:42 Triage completed. al5 20:45 Arm band placed on right wrist. Patient placed in waiting room, in view of staff al5 members, on pulse oximetry, Patient notified of wait time. EKG completed in triage. Results shown to MD. 21:10 Kamilah Knutson, RN is Primary Nurse. ay 21:21 vehicle monitor technician on. Pulse ox on. NIBP on. ay 21:21 Patient maintains SpO2 saturation greater than 95% on room air. ay 21:24 Missed attempt(s): 20 gauge in right antecubital area. Bleeding controlled, band aid sa1 applied, catheter tip intact. 21:50 XRAY Chest (1 view) In Process Unspecified. EDMS 22:03 CT Chest For PE Angio In Process Unspecified. EDMS 07/07 01:15 Marlon Noe MD is Referral Physician. sp4 01:30 IV discontinued, intact, bleeding controlled, No redness/swelling at site. Pressure ay dressing applied. Administered Medications: 07/06 22:17 Drug: NS 0.9% IV 1000 ml IV at 1000 ml once; to be given as a bolus over 60 minutes ay Route: IV; Rate: 1000 ml; Site: right antecubital; 07/07 01:36 Follow up: IV Status: Completed infusion ay Outcome: 01:16 Discharge ordered by MD. khan 01:30 Discharged to home ambulatory, ay 01:30 Condition: stable 01:30 Discharge instructions given to patient, Instructed on discharge instructions, follow up and referral plans. Demonstrated understanding of instructions, follow-up care, 01:36 Patient left the ED. ay Signatures: Dispatcher [employer] EDEmilia [email or web address] Ry Lawrence MD MD sp4 Evelin Read RN RN Sultan kymberly Burrows Awudu, RN RN ay
[2024-07-07 01:54] VITALS: TEMP 98.4
[2024-07-07 01:55] VITALS: O2SAT 100
[2024-07-07 01:58] VITALS: BP 116/76
--- NOTE | 2024-07-08 14:43 | EKG ---
Test Date: 2024-07-06 Test Time: 20:42:06 Marine Farmer: LAURA MEASUREMENT RESULTS: Intervals: Rate: 76 AL: 154 QRSD: 48 QT: 372 QTc: 418 [place]: P: 71 AL: 154 QRS: 79 T: 78 INTERPRETIVE STATEMENTS: Poor data quality, interpretation may be adversely affected Undetermined rhythm Nonspecific T wave abnormality Abnormal ECG Compared to ECG 08/27/2023 03:39:50 T-wave abnormality now present Sinus rhythm no longer present Electronically Signed On 07-08-24 14:41:02 CDT by Dewey Woodward
--- NOTE | 2024-07-08 14:43 | EKG ---
Test Date: 2024-07-06 Test Time: 20:44:19 Well Head Pumper: LAURA MEASUREMENT RESULTS: Intervals: Rate: 69 CO: 146 QRSD: 70 QT: 394 QTc: 422 [place]: P: 46 CO: 146 QRS: 73 T: 61 INTERPRETIVE STATEMENTS: Normal sinus rhythm with sinus arrhythmia Normal ECG Compared to ECG 07/06/2024 20:43:36 No significant changes Electronically Signed On 07-08-24 14:40:59 CDT by Dewey Woodward
--- NOTE | 2024-07-08 14:43 | EKG ---
Test Date: 2024-07-06 Test Time: 20:43:36 Car Driver: LAURA MEASUREMENT RESULTS: Intervals: Rate: 71 DE: 140 QRSD: 72 QT: 396 QTc: 430 [place]: P: 50 DE: 140 QRS: 79 T: 64 INTERPRETIVE STATEMENTS: Undetermined rhythm Otherwise normal ECG Compared to ECG 07/06/2024 20:42:06 T-wave abnormality no longer present Electronically Signed On 07-08-24 14:41:01 CDT by Dewey Woodward
== END 2024-07-07 01:36 | disposition home or self-care (01) ==
LOC: ER 20:29
DX: R07.89 Other chest pain (principal)
CPT/HCPCS: 96361; 93005 ×3; 85025; 80048; 36415; 83735; 84703; 85610; 80076; 84443; 84484; 84439; 83880; 80307; 71275; 71045; 96360; 99285; Q9967; J7030